=== PATIENT | female | born 1945 | race Caucasian/White ===

== ENCOUNTER → 2023-07-18 12:02 | Outpatient (REF) | payer MEDICARE, SELFPAY ==
[2023-07-18 12:46] LABS: Urine Albumin Negative (Neg - Trace); Urine Bilirubin Negative (Negative); Urine Character Clear (Clear); Urine Color Yellow; Urine Glucose Negative (Negative); Urine Ketone Negative (Negative); Urine Leukocyte Negative (Negative); Urine Nitrite Negative (Negative); Urine Occult Blood Negative (Negative); Urine Urobilinogen Negative (Neg - 1+)
[2023-07-18 12:47] LABS: % Basophils 0.7 % (0-2); % Eosinophils 1.6 % (0-6); % Immature Granulocytes 0.1 % (0-0.5); % Lymphocytes 43.5 % (20.5-51.1); % Monocytes 9.4 % (1.7-9.3); % Neutrophils 44.7 % (42.2-75.2); Absolute Basophils 0.1 10^3/uL (0-0.2); Absolute Eosinophils 0.1 10^3/uL (0-0.7); Absolute Lymphocytes 2.9 10^3/uL (1.2-3.4); Absolute Monocytes 0.6 10^3/uL (0.1-0.6); Hematocrit 35.9 % (37.0-47.0); Hemoglobin 12.5 g/dL (12.0-16.0); Mean Corp Hgb Conc. 34.8 g/dL (33.0-37.0); Mean Corpuscular Hgb 31.6 pg (27.0-31.0); Mean Corpuscular Volume 90.9 fL (81.0-99.0); Mean Platelet Volume 9.9 fL (7.4-10.4); Nucleated Red Blood Cells % 0 %; Platelet Count 282 10^3/uL (130-400); Red Blood Cell Count 3.95 10^6/uL (4.20-5.40); Red Cell Dist. Width 12.9 % (11.5-14.5); White Blood Cell Count 6.7 10^3/uL (4.8-10.8)
[2023-07-18 13:16] LABS: ALT (SGPT) 19 U/L (0-35); AST (SGOT) 29 U/L (14-36); Albumin 4.5 g/dl (3.5-5.0); Alkaline Phosphatase 110 U/L (38-126); Blood Urea Nitrogen 30 mg/dl (7-17); Calcium 10.2 mg/dl (8.4-10.2); Carbon Dioxide 31 mmol/L (22-30); Chloride 98 mmol/L (98-107); Glucose 90 mg/dl (70-99); HDL Cholesterol 97 mg/dl; LDL Cholesterol, Calculated 127 mg/dl; Potassium 4.1 mmol/L (3.5-5.1); Sodium 135 mmol/L (135-145); Total Bilirubin 0.6 mg/dl (0.2-1.3); Total Cholesterol 239 mg/dl (50-199); Total Protein 7.6 g/dl (6.3-8.2); Triglyceride 79 mg/dl (10-149); Very Low Density Lipoprotein 15 mg/dl (0-30); eGFR 58.39
[2023-07-18 13:30] LABS: Free T4 1.59 ng/dl (0.78-2.19)
[2023-07-18 13:44] LABS: TSH 2.67 uIU/ml (0.47-4.68)
== END ==
LOC: REG 12:02
PROVIDERS: ATTENDING PHYSICIAN Family Medicine
DX: I10 Essential (primary) hypertension (principal); E78.2 Mixed hyperlipidemia; E89.0 Postprocedural hypothyroidism; Z79.899 Other long term (current) drug therapy
CPT/HCPCS: 36415; 80053; 80061; 81003; 84439; 84443; 85025

== ENCOUNTER → 2023-09-19 13:59 | Outpatient (REF) | payer MEDICARE, SELFPAY | LOC: RCS 13:59 | PROVIDERS: ATTENDING PHYSICIAN Nuclear Medicine Nuclear Cardiology; FAMILY PHYSICIAN Family Medicine | DX: I35.0 Nonrheumatic aortic (valve) stenosis (principal) | CPT/HCPCS: 93306 ==

== ENCOUNTER → 2023-12-04 16:54 | Outpatient (REF) | payer MEDICARE, SELFPAY ==
[2023-12-04 18:20] LABS: Free T4 1.45 ng/dl (0.78-2.19)
[2023-12-04 18:34] LABS: TSH 3.96 uIU/ml (0.47-4.68)
== END ==
LOC: REG 16:54
PROVIDERS: ATTENDING PHYSICIAN Internal Medicine Endocrinology, Diabetes & Metabolism; FAMILY PHYSICIAN Family Medicine
DX: E03.2 Hypothyroidism due to medicaments and other exogenous substances (principal)
CPT/HCPCS: 36415; 84439; 84443

== ENCOUNTER → 2024-07-05 13:03 | Outpatient (REF) | payer MEDICARE, SELFPAY ==
[2024-07-05 14:55] LABS: % Basophils 0.7 % (0-2); % Eosinophils 1.5 % (0-6); % Immature Granulocytes 0.2 % (0-0.5); % Lymphocytes 30.7 % (20.5-51.1); % Monocytes 10.4 % (1.7-9.3); % Neutrophils 56.5 % (42.2-75.2); Absolute Eosinophils 0.1 10^3/uL (0-0.7); Absolute Lymphocytes 1.8 10^3/uL (1.2-3.4); Absolute Monocytes 0.6 10^3/uL (0.1-0.6); Absolute Neutrophils 3.3 10^3/uL (1.4-6.5); Hematocrit 33.1 % (37.0-47.0); Mean Corp Hgb Conc. 33.2 g/dL (33.0-37.0); Mean Corpuscular Hgb 29.3 pg (27.0-31.0); Mean Corpuscular Volume 88.3 fL (81.0-99.0); Mean Platelet Volume 9.4 fL (7.4-10.4); Nucleated Red Blood Cells % 0 %; Platelet Count 245 10^3/uL (130-400); Red Blood Cell Count 3.75 10^6/uL (4.20-5.40); Red Cell Dist. Width 14.3 % (11.5-14.5); White Blood Cell Count 5.9 10^3/uL (4.8-10.8)
[2024-07-05 15:19] LABS: Urine Albumin Negative (Neg - Trace); Urine Bilirubin Negative (Negative); Urine Character Clear (Clear); Urine Color Yellow; Urine Glucose Negative (Negative); Urine Ketone Negative (Negative); Urine Leukocyte Negative (Negative); Urine Nitrite Negative (Negative); Urine Occult Blood Negative (Negative); Urine Urobilinogen Negative (Neg - 1+); Urine pH 6.5 (5.0-9.0)
[2024-07-05 15:38] LABS: ALT (SGPT) 19 U/L (0-35); AST (SGOT) 27 U/L (14-36); Albumin 4.7 g/dl (3.5-5.0); Alkaline Phosphatase 105 U/L (38-126); Blood Urea Nitrogen 29 mg/dl (7-17); Calcium 9.7 mg/dl (8.4-10.2); Carbon Dioxide 33 mmol/L (22-30); Chloride 97 mmol/L (98-107); Glucose 93 mg/dl (70-99); HDL Cholesterol 93 mg/dl; Iron 69 ug/dl (37-170); LDL Cholesterol, Calculated 117 mg/dl; Potassium 4.1 mmol/L (3.5-5.1); Sodium 137 mmol/L (135-145); Total Bilirubin 0.7 mg/dl (0.2-1.3); Total Cholesterol 230 mg/dl (50-199); Total Protein 7.1 g/dl (6.3-8.2); Triglyceride 100 mg/dl (10-149); Very Low Density Lipoprotein 20 mg/dl (0-30); eGFR > 60.00
[2024-07-05 15:48] LABS: Percent Saturation 18 % (20-50); Total Iron Binding Capacity 372 ug/dl (265-497)
[2024-07-05 15:55] LABS: Free T4 1.42 ng/dl (0.78-2.19)
[2024-07-05 16:09] LABS: TSH 4.33 uIU/ml (0.47-4.68)
[2024-07-05 16:13] LABS: Ferritin 12.5 ng/ml (11.1-264.0)
[2024-07-06 09:52] LABS: Glycohemoglobin (HgbA1c) 5.3 % (4.0-5.6)
== END ==
LOC: REG 13:03
PROVIDERS: ATTENDING PHYSICIAN Family Medicine
DX: D64.9 Anemia, unspecified (principal); I10 Essential (primary) hypertension; Z83.3 Family history of diabetes mellitus; E89.0 Postprocedural hypothyroidism; E78.2 Mixed hyperlipidemia; Z79.899 Other long term (current) drug therapy
CPT/HCPCS: 36415; 80053; 80061; 81003; 82728; 83036; 83540; 83550; 84439; 84443; 85025

== ENCOUNTER → 2024-07-17 15:05 | Outpatient (REF) | payer MEDICARE, SELFPAY ==
[2024-07-17 18:26] LABS: Folate > 20.0 ng/ml (2.76-20); Vitamin B12 976 pg/ml (239-931)
== END ==
LOC: RCS 15:05
PROVIDERS: ATTENDING PHYSICIAN Nuclear Medicine Nuclear Cardiology; FAMILY PHYSICIAN Family Medicine
DX: I35.0 Nonrheumatic aortic (valve) stenosis (principal); D64.9 Anemia, unspecified; Z79.899 Other long term (current) drug therapy
CPT/HCPCS: 36415; 82607; 82746; 93306

== ENCOUNTER → 2024-08-06 17:02 | Outpatient (REF) | payer MEDICARE, SELFPAY ==
[2024-08-08 18:00] LABS: FIT-Fecal Occult Blood Interp Negative
== END ==
LOC: REG 17:02
PROVIDERS: ATTENDING PHYSICIAN Family Medicine
DX: D50.8 Other iron deficiency anemias (principal)
CPT/HCPCS: 83520

== ENCOUNTER → 2024-11-12 16:29 | Outpatient (REF) | payer MEDICARE, SELFPAY ==
[2024-11-12 17:41] LABS: % Basophils 0.7 % (0-2); % Eosinophils 1.7 % (0-6); % Immature Granulocytes 0.3 % (0-0.5); % Lymphocytes 37.1 % (20.5-51.1); % Monocytes 10.3 % (1.7-9.3); % Neutrophils 49.9 % (42.2-75.2); Absolute Eosinophils 0.1 10^3/uL (0-0.7); Absolute Lymphocytes 2.2 10^3/uL (1.2-3.4); Absolute Monocytes 0.6 10^3/uL (0.1-0.6); Absolute Neutrophils 2.9 10^3/uL (1.4-6.5); Hematocrit 34.7 % (37.0-47.0); Mean Corp Hgb Conc. 34.6 g/dL (33.0-37.0); Mean Corpuscular Hgb 30.6 pg (27.0-31.0); Mean Corpuscular Volume 88.5 fL (81.0-99.0); Mean Platelet Volume 9.6 fL (7.4-10.4); Nucleated Red Blood Cells % 0 %; Platelet Count 264 10^3/uL (130-400); Red Blood Cell Count 3.92 10^6/uL (4.20-5.40); Red Cell Dist. Width 13.7 % (11.5-14.5); White Blood Cell Count 5.9 10^3/uL (4.8-10.8)
[2024-11-12 17:59] LABS: Iron 106 ug/dl (37-170)
[2024-11-12 18:26] LABS: Percent Saturation 29 % (20-50); Total Iron Binding Capacity 359 ug/dl (265-497)
[2024-11-12 18:36] LABS: Ferritin 31.1 ng/ml (11.1-264.0)
[2024-11-12 19:08] LABS: Folate > 20.0 ng/ml (2.76-20); Vitamin B12 974 pg/ml (239-931)
== END ==
LOC: REG 16:29
PROVIDERS: ATTENDING PHYSICIAN Family Medicine
DX: D64.9 Anemia, unspecified (principal); Z79.899 Other long term (current) drug therapy
CPT/HCPCS: 36415; 82607; 82728; 82746; 83540; 83550; 85025

== ENCOUNTER → 2024-12-03 16:52 | Outpatient (REF) | payer MEDICARE, SELFPAY ==
[2024-12-03 18:09] LABS: TSH 1.56 uIU/ml (0.47-4.68)
== END ==
LOC: REG 16:52
PROVIDERS: ATTENDING PHYSICIAN Internal Medicine Endocrinology, Diabetes & Metabolism; FAMILY PHYSICIAN Family Medicine
DX: Z85.850 Personal history of malignant neoplasm of thyroid (principal)
CPT/HCPCS: 36415; 84439; 84443

== ENCOUNTER → 2025-03-03 14:03 | Outpatient (REF) | payer MEDICARE, SELFPAY | LOC: RCS 14:03 | PROVIDERS: ATTENDING PHYSICIAN Nuclear Medicine Nuclear Cardiology; FAMILY PHYSICIAN Family Medicine | DX: I35.0 Nonrheumatic aortic (valve) stenosis (principal); I10 Essential (primary) hypertension; I89.0 Lymphedema, not elsewhere classified | CPT/HCPCS: 93306 ==